=== PATIENT | male | born 1940 | race Caucasian/White ===

== ENCOUNTER → 2017-04-21 | Day surgery (SDC) | payer MEDICARE ==
[~2017-04-21] MED LIST: ACETAMINOPHEN/HYDROcodone 325 MG/5 MG TAB ONE; BUPIVACAINE/EPINEPHRINE 0.5% PF 30 ML VIAL ONE; KETOROLAC TROMETHAMINE 30 MG/ML (IVP) VIAL IV PUSH ONE; LACTATED RINGER'S 1,000 ML BAG IV ONE; LACTATED RINGER'S 1000 ML INJ 1,000 ML ONE; MIDAZOLAM HCL 2 MG/2 ML VIAL ONE; ONDANSETRON HCL 4 MG/2 ML VIAL IV PUSH ONE; PROPOFOL 200 MG/20 ML AMP IV ONE; ceFAZolin INJ 1,000 MG VIAL ONE
--- NOTE | 2017-04-22 05:30 | TN ---
cc: RODNEY MICHELLE DATE OF SURGERY 04/21/2017 PREOPERATIVE DIAGNOSIS Bilateral inguinal hernias. POSTOPERATIVE DIAGNOSIS Bilateral indirect inguinal hernias. PROCEDURE 1. Laparoscopic bilateral inguinal hernia repair with mesh (TAP). 2. Excisional biopsy of left shoulder cutaneous lesion. 1.5 cm x 0.5 cm excision with simple closure. ANESTHESIA General and local anesthetic. ATTENDING SURGEON MD Robert P[employer]ED[employer] Danielle Abbasi, Nurse Practitioner. FINDINGS 1. Bilateral small fat-containing indirect inguinal hernias. 2. Left shoulder skin lesion of unknown behavior, nonpigmented. INDICATIONS FOR PROCEDURE The patient is a 77-year-old male who developed increasing right groin pain. The patient was evaluated by his primary care physician and was felt have a possible right inguinal hernia. The patient on evaluation had a possible small hernia. In the office, however, CT scan was ordered to evaluate this and did reveal bilateral small fat-containing inguinal hernias. I discussed surgery with the patient to include open and laparoscopic repair of his inguinal hernias versus nonoperative management. He wished to undergo laparoscopic repair of his bilateral inguinal hernias. The patient also of note did have a left shoulder nonpigmented skin lesion which was new and changing. The patient thought it that may have been related to a bug bite but it was clinically concerning for possible basal cell carcinoma. We discussed the risks, benefits and alternatives to excisional biopsy of this lesion and he wished to undergo the procedure at the same time under anesthesia. OF NOTE Nurse Practitioner Danielle Abbasi was required for the safe and efficient laparoscopic hernia repair procedure on this patient due to her specific training for this task. PROCEDURE PERFORMED Informed consent was obtained. The patient was taken to the operating room, placed in supine position with the patient under general anesthesia. The patient's abdomen was shaved, prepped and draped in sterile fashion. Time-out was performed. The preperitoneal space was entered to the right of the umbilicus. We anesthetized the skin, made a small skin incision with a #11 blade scalpel and dissected down to the anterior rectus sheath. This was opened and the rectus muscle was spread laterally accessing the space anterior to the posterior rectus sheath. We finger dissected this in the properitoneal space without difficulty and placed our dissection balloon and expanded this under visualization. We had excellent dissection into the preperitoneal space. We removed the dissection balloon and placed a balloon trocar, insufflated the preperitoneal space. We placed two 5-mm ports in the midline under direct visualization. We then were able to dissect out the right side cord structures. There was a small to moderate sized fat-containing indirect inguinal hernia. This was completely reduced into the abdomen. The cord structures were skeletonized without difficulty. We then turned our attention towards the left side. We dissected this in likewise fashion and there is a small to moderate sized fat-containing inguinal hernia completely reduced into the preperitoneal space. Again, this was an indirect inguinal hernia as well. We then turned our attention towards the placement of the mesh. We placed a 6-inch x 3-inch mesh into the patient in the preperitoneal space. This was done, placed through the 10-mm trocar and tacked in place with a Bard tacker along the anterior edge bilaterally. We had good coverage of both hernias and a good technical result. We then removed the insufflation from the preperitoneal space while maintaining good mesh position. We removed all ports and expressed the CO2 from the preperitoneal space. We closed the anterior rectus sheath with a running 0 Vicryl suture. We closed the skin with 4-0 Monocryl and Dermabond. We then turned attention towards the left shoulder. This was prepped and draped in sterile fashion and anesthetized with 0.25% Marcaine. We excised a 1.5-cm x 0.5-cm excisional biopsy of the left shoulder lesion. This was passed off for permanent section. We closed this with a 3-0 Vicryl, followed by Steri-Strips and a sterile dressing. We had excellent hemostasis spontaneously. At this point in time the patient was discontinued from the anesthesia, taken to the PACU in stable addition. The patient tolerated the procedure well; no apparent complications. All counts were correct and I was present and scrubbed for the entire procedure. MD JO-ANN Milner/SSB /6:02 PM /5:15 AM
== END | disposition home or self-care (01) ==
LOC: ESDC 06:44
PROVIDERS: ATTEND Surgery
DX: K40.20 Bilateral inguinal hernia, without obstruction or gangrene, not specified as recurrent (principal); L98.9 Disorder of the skin and subcutaneous tissue, unspecified
CPT/HCPCS: 00400; 00840; 11100; 49650; 88305; 88341; 88342; C1727; C1781; J0690; J1885; J2250; J2405; J3010; J7120